=== PATIENT | male | born 1975 ===

== ENCOUNTER 2021-09-25 05:04 | Day surgery (SDC) | payer OTHER | END 2021-09-25 09:50 | disposition home or self-care (01) | LOC: AMB-ENDOS 05:04 | PROVIDERS: ATTEND Colon & Rectal Surgery | DX: K63.5 Polyp of colon (principal); Z20.822 Contact with and (suspected) exposure to COVID-19; Z86.010 Personal history of colon polyps; K64.4 Residual hemorrhoidal skin tags; Z88.0 Allergy status to penicillin; Z88.8 Allergy status to other drugs, medicaments and biological substances ==